=== PATIENT | female | born 1965 | race Two or more races ===

== ENCOUNTER 2024-08-02 15:53 | Inpatient (IN) | payer OTHER ==
[~2024-08-02] VITALS: Ht 168.9 cm; Wt 53.0 kg
--- NOTE | 2024-08-02 16:23 | ED.PDOC ---
HPI Comments 58 year old female presents to the ED with chief complaint of chest pain. Patient reports that she has been experiencing chest pain with associated SOB, headache, and nausea since about 3pm today. Patient relays that she has been experiencing a recent cold lately. Patient denies any vomiting, diarrhea, cough, dizziness, abdominal pain, numbness, or weakness. Chief Complaint: Chest Pain Time Seen by MD: 16:20 Reviewed Notes: Nurses Notes, Medications, Allergies Allergies: Coded Allergies: NO KNOWN ALLERGIES (Unverified , 08/02/24) Information Source: Patient Mode of Arrival: Ambulatory Severity: Moderate Timing: Hours Duration: Since onset Prehospital treatment: None Location: Chest (L) Radiation: No Radiation Quality: Pressure Onset: At Rest Cardiac Risk Factors: HTN PE Risk Factors: None History of: None Past Medical History PAST MEDICAL HISTORY: Asthma, HTN Surgical History: Denies all surgeries PHOTOGRAPHER MOTION PICTURE History: No Pertinent PHOTOGRAPHER MOTION PICTURE History Family History Family History: Reviewed,noncontributory to illness Social History Smoker: Non-Smoker Alcohol: Denies ETOH Use Drugs: Denies Drug Use Lives In: Home Constitutional: denies: chills, diaphoresis, fatigue, fever, malaise, sweats, weakness, others EENTM: denies: blurred vision, double vision, ear bleeding, ear discharge, ear drainage, ear pain, ear ringing, eye pain, eye redness, hearing loss, mouth pain, mouth swelling, nasal discharge, nose bleeding, nose congestion, nose pain, photophobia, tearing, throat pain, throat swelling, voice changes, others Respiratory: reports: shortness of breath; denies: cough, hemoptysis, orthopnea, SOB at rest, SOB with excertion, stridor, wheezing, others Cardiovascular: reports: chest pain; denies: dizzy spells, diaphoresis, Dyspnea on exertion, edema, irregular heart beat, left arm pain, lightheadedness, palpitations, PND, syncope, others Gastrointestinal: reports: nausea; denies: abdomen distended, abdominal pain, blood streaked bowels, constipated, diarrhea, dysphagia, difficulty swallowing, hematemesis, melena, poor appetite, poor fluid intake, rectal bleeding, rectal pain, vomiting, others Genitourinary: denies: abnormal vagina bleeding, burning, dyspareunia, dysuria, flank pain, frequency, hematuria, incontinence, pain, , vagina discharge, urgency, others Neurological: reports: headache; denies: dizziness, fainting, left sided numbness, left sided weakness, numbness, paresthesia, pre-existing deficit, right sided numbness, right sided weakness, seizure, speech problems, tingling, tremors, weakness, others Musculoskeletal: denies: back pain, gout, joint pain, joint swelling, muscle pain, muscle stiffness, neck pain, others Integumetry: denies: bruises, change in color, change in hair/nails, dryness, laceration, lesions, lumps, rash, wounds, others Allergic/Immunocompromised: denies: Difficulty Healing, Frequent Infections, Hives, Itching, others Hematologic/Lymphatic: denies: anemia, blood clots, easy bleeding, easy bruising, swollen glands, others Endocrine: denies: excessive hunger, excessive sweating, excessive thirst, excessive urination, flushing, intolerance to cold, intolerance to heat, unexplained weight gain, unexplained weight loss, others Psychiatric: denies: anxiety, bipolar disorder, depression, hopeless, panic disorder, schizophrenia, sleepless, suicidal, others All Other Systems: Reviewed and Negative Physical Exam General Appearance: No Apparent Distress, Normal HEENT: Normal ENT Inspection, PERRL/EOMI Neck: Full Range of Motion, Non-Tender, Normal, Normal Inspection Respiratory: Chest Non-Tender, Lungs Clear, No Accessory Muscle Use, No Respi ratory Distress, Normal Breath Sounds Cardiovascular: No Edema, No JVD, No Murmur, No Gallop, Normal Peripheral Pulses, Regular Rate/Rhythm Breast Exam: Deferred Gastrointestinal: No Organomegaly, Non Tender, No Pulsatile Mass, Normal Bowel Sounds, Soft Genitalia: Deferred Pelvic: Deferred Rectal: Deferred Extremities: No calf tenderness, Normal capillary refill, Normal inspection, Normal range of motion, Non-tender, No pedal edema Musculoskeletal : Apperance: Normal Neurologic: Alert, rotary adjuster II-XII nml as Tested, No Motor Deficits, Normal Affect, Normal Mood, No Sensory Deficits Cerebellar Function: Normal Reflexes: Normal Skin: Dry, Normal Color, Warm Lymphatic: No Adenopathy EKG EKG : Pulse Rate (adult): 80 Laura: Normal Cardiac Rhythm: NSR Block: None Hypertrophy: None ST: Normal Was a procedure done? Was a procedure done?: No CP Differential Dx Differential Diagnosis: PAC's, PSVT Other Differential Diagnosis GERD, peptic ulcer disease, esophagitis, pancreatitis, biliary colic, cholelithiasis, gastritis, gastroenteritis, ACS, PE, AAA, PTX, Costochondritis, empyema, pericarditis Differential Diagnosis: Angina, Aortic dissection, Chest Wall Pain, Costochondritis, Myocardial Infarction X-Ray, Labs, Meds, VS Vital Signs Date Time Temp Pulse Resp B/P (MAP) Pulse Ox O2 Delivery O2 Flow Rate FiO2 08/02/24 17:23 83 18 100 Room Air* 0 21 08/02/24 17:22 86 20 164/96 (118) 100 08/02/24 17:15 176/102 08/02/24 17:10 97.8 83 22 179/123 (141) 100 97.8 08/02/24 17:07 85 20 176/102 08/02/24 17:00 74 08/02/24 16:23 80 08/02/24 16:11 97.8 79 18 184/99 (127) 100 08/02/24 15:59 80 Lab Test 08/02/24 17:23 08/02/24 17:10 08/02/24 16:03 08/02/24 00:00 Range/Units POC Glucose 92 70-106 mg/dl Troponin I High Sensitivity Pending < 3 L </=34 ng/L Sodium Level Pending Potassium Level Pending Chloride Level Pending Carbon Dioxide Level Pending Anion Gap Pending Blood Urea Nitrogen Pending Creatinine Pending Glomerular Filtration Rate Calc Pending BUN/Creatinine Ratio Pending Serum Glucose Pending Calcium Level Pending Total Bilirubin Pending Aspartate Amino Transferase (AST) Pending Alanine Aminotransferase (ALT) Pending Alkaline Phosphatase Pending Total Protein Pending Albumin Pending Urine Color Light-yellow Yellow Urine Clarity Clear Clear Urine pH 6.5 5.0-9.0 Urine Specific [place] 1.016 1.001-1.035 Urine Protein Negative Negative Urine Ketones Negative Negative Urine Blood Negative Negative /uL Urine Nitrite Negative Negative Urine Bilirubin Negative Negative Urine Urobilinogen Normal Negative mg/dL Urine Leukocyte Esterase 1+ Negative /uL Urine RBC 1 0 - 4 /hpf Urine WBC 3 0 - 5 /hpf Urine Squamous Epithelial Cells Few <5 /hpf Urine Bacteria Few H None Seen /hpf Urine Glucose Normal Normal mg/dL Current Medications Medications (Trade) Dose Ordered Sig/Marina Route Start Time Stop Time Status Last Admin Nitroglycerin (Nitrodur 0.2MG/ Hr) 1 patch ONCE ONCE TD 08/02/24 16:15 08/02/24 16:18 DC 08/02/24 17:15 Morphine Sulfate 4 mg ONCE ONCE IV 08/02/24 16:15 08/02/24 16:18 DC 08/02/24 17:07 Ondansetron HCl (Zofran) 4 mg ONCE ONCE IV 08/02/24 16:15 08/02/24 16:18 DC 08/02/24 17:03 Chest XR: FINDINGS: Lines and Tubes: None Lungs: No focal consolidation. Pleura: No effusion.No pneumothorax. Cardiomediastinal contours: Unremarkable Pulmonary vasculature: Within normal limits. Bones: No acute osseous abnormality. IMPRESSION: 1. No acute cardiopulmonary disease. Images Reviewed?: Images reviewed and evaluated by me Time of 1ST Reevaluation: 17:20 Reevaluation 1ST: Unchanged Patient Education/Counseling: Diagnosis, Treatment Family Education/Counseling: No Family Present Departure 1 Departure Time of Disposition: 17:48 Impression: Primary Impression: Hypertensive emergency Additional Impression: Chest pain Disposition: 09 ADMITTED INPATIENT Admit to: Tele Condition: Guarded Critical Care Note Critical Care Time?: Yes (45 min-critical care time only) Critical care comment: CRITICAL CARE TIME: Treatments/Evaluations: Close monitoring and treatment of unstable vital signs, cardiorespiratory, and neurologic status, while maintaining tight balance of fluid, respiratory, and cardiac interventions. This time includes discussing the case with the patient and the patients family. This time does not include all procedures stated elsewhere in this record. This time also includes reviewing ol d records, labs and radiological studies. This time includes examining and re- examining the patient. Additionally, this time also includes arranging care with admitting and consulting physicians. Stability Stability form required: No Heart Score Heart Score: Heart Score Response (Comments) Value History Moderate Suspicious 1 EKG Normal 0 Age 45-64 1 Risk Factors 1 or 2 risk factors 1 Troponin N/A 0 Total 3 I personally scribed for ISAAC NUÑEZ MD ([email or web address]) on 08/02/24 at 16:23. Electronically submitted by Kevin Sauceda ([email or web address]). I personally scribed for ISAAC NUÑEZ MD ([email or web address]) on 08/02/24 at 16:41. Electronically submitted by Kevin Sauceda ([email or web address]). I personally scribed for ISAAC NUÑEZ MD ([email or web address]) on 08/02/24 at 17:25. Electronically submitted by Kevin Sauceda ([email or web address]). ISAAC NUÑEZ MD Aug 02, 2024 16:23
--- NOTE | 2024-08-02 16:33 | DVH ---
CHEST RADIOGRAPH Indication: cp Technique: Single frontal view of the chest was obtained Comparison: None FINDINGS: Lines and Tubes: None Lungs: No focal consolidation. Pleura: No effusion.No pneumothorax. Cardiomediastinal contours: Unremarkable Pulmonary vasculature: Within normal limits. Bones: No acute osseous abnormality. IMPRESSION: 1. No acute cardiopulmonary disease. HS:Y
[2024-08-02 16:42] LABS: Urine Bacteria FEW /hpf (None Seen); Urine Blood Negative /uL (Negative); Urine Clarity Clear (Clear); Urine Color Light-Yellow (Yellow); Urine Protein, UAD Negative (Negative); Urine Specific Gravity 1.016 (1.001-1.035); Urine Squamous Epithelial Cell FEW /hpf (<5); Urine Urobilinogen Normal (Negative); Urine WBC 3 /hpf (0 - 5); Urine pH 6.5 (5.0-9.0)
[2024-08-02] MEDS: ONDANSETRON HCL 4 MG/2 ML VIAL IV ONE (17:03)
[2024-08-02] MEDS: MORPHINE SULFATE 4 MG/ML SYR/VIAL IV ONE (17:07)
[2024-08-02] MEDS: NITROGLYCERIN 0.2MG/HR TOPICAL PATCH TD ONE (17:15)
[2024-08-02 17:23] VITALS: PULSE 83; RESP 18; O2SAT 100
[2024-08-02 17:57] LABS: Alanine Aminotransferase 22 U/L (7-40); Albumin 4.4 g/dL (3.2-4.8); Alkaline Phosphatase 64 U/L (46-116); Anion Gap 8 (5-15); Aspartate Aminotransferase 18 U/L (13-40); BUN/Creatinine Ratio 13.9 (10.0-20.0); Blood Urea Nitrogen 11 mg/dL (9-23); Calcium 10.1 mg/dL (8.7-10.4); Carbon Dioxide 25 mmol/L (20-31); Glucose 95 mg/dL (74-106); Potassium 3.6 mmol/L (3.5-5.1); Sodium 141 mmol/L (136-145)
[2024-08-02 17:58] LABS: Bilirubin, Total 0.3 mg/dL (0.2-1.0); Total Protein 7.4 g/dL (5.7-8.2)
[2024-08-02 18:08] LABS: Chloride 108 mmol/L (98-107)
[2024-08-02 18:20] LABS: Basophils # (auto) 0 10 ^3/uL (0-0.2); Basophils % (auto) 0.9 % (0.0-2.0); Eosinophils # (auto) 0.1 10 ^3/uL (0-0.8); Eosinophils % (auto) 2.7 % (0.0-7.0); Hematocrit 37.5 % (36.0-46.0); Lymphocytes # (auto) 2.1 10 ^3/uL (0.4-5.4); Lymphocytes % (auto) 44.5 % (10.0-50.0); Mean Corpuscular Hemoglobin 31.4 pg (28.0-32.0); Mean Corpuscular Hgb Conc. 34.5 g/dL (32.0-36.0); Mean Corpuscular Volume 90.9 fL (80.0-100.0); Monocytes # (auto) 0.5 10 ^3/uL (0-1.3); Monocytes % (auto) 10.3 % (0.0-12.0); Neutrophils % (auto) 41.6 % (37.0-80.0); Nucleated Red Blood Cells % 0.4 %; Platelet Count (auto) 387 10^3/uL (140-450); Red Blood Cells 4.13 10^6/uL (4.0-5.20); Red Cell Distribution Width 12.9 % (11.8-14.3); White Blood Cell 4.7 10^3/uL (4.4-10.8)
--- NOTE | 2024-08-02 18:50 | ECG ---
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
--- NOTE | 2024-08-02 19:58 | ECG ---
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
[2024-08-02 22:45] VITALS: O2SAT 100
[2024-08-03] VITALS (11 sets, daily range): BP systolic 121–155; BP diastolic 73–107; PULSE 49–81; RESP 16–20; TEMP 97.8–98.8; O2SAT 96–98
--- NOTE | 2024-08-03 01:35 | DVHHPRES ---
History of Present Illness Resident Creating Document: REYNALDO CERRATO RESIDENT History of Present Illness Patient is 58-year-old female with past medical history of hypertension and hyperlipidemia who came to the hospital with a chief complaint of acute onset of chest pain and concurrent shortness of breath. As per patient he usually have palpitation and has been recently diagnosed with hypertension and hyperlipidemia how she is not taking any medication, today around 3:00 p.m. she started having chest pain, substernal, nonradiating, present at rest, associated with palpitation, mild shortness of breath. At the time of evaluation patient is chest pain and shortness of breath resolved, initially patient was hypertensive systolic ranging 180 which normalized to 122 130. Patient denied any other complaints including fever, chills, sputum production, motor weakness, dizziness, sensory deficits, dysuria, any other symptoms. Past Medical History Hypertension, hyperlipidemia Past Surgical History: None Family History: None Smoke: No ALCOHOL: none Drugs: None Lives: with Family Review of Systems Review of Systems Eyes: No Pain, No Vision change, No Conjunctivae inflammation, No Eyelid inflammation, No Other, No Redness ENT: No Ear pain, No Ear discharge, No Nose pain, No Nose discharge, No Nose congestion, No Mouth pain, No Mouth swelling, No Throat pain, No Throat swelling, No Other Cardiovascular: No Chest Pain, No Palpitations, No Orthopnea, No Paroxysmal Noc. Dyspnea, No Edema, No Lt Headedness, No Other Respiratory: No Cough, No Dry, No Shortness of breath, No SOB with excertion, No Wheezing, No Hemoptysis, No Pleuritic Pain, No Sputum, No Other Gastrointestinal: No Nausea, No Vomiting, No Abdominal Pain, No Diarrhea, No Constipation, No Melena, No Hematochezia, No Other Genitourinary: No Dysuria, No Frequency, No Incontinence, No Hematuria, No Retention, No Other Musculoskeletal: No other, No neck pain, No shoulder pain, No arm pain, No back pain, No hand pain, No leg pain, No foot pain Skin: No Rash, No Lesions, No Jaundice, No Bruising, No Other Allergies: Coded Allergies: Iodine (Verified Allergy, Severe, 08/03/24) "bad reaction" per patient Exam Vital Signs Vital Signs Date Time Temp Pulse Resp B/P (MAP) Pulse Ox O2 Delivery O2 Flow Rate FiO2 08/02/24 21:41 98.2 85 18 152/84 (106) 96 98.2 08/02/24 17:23 Room Air* 0 21 Exam General Appearance: Cooperative. Well developed. Well nourished. NAD Head Exam: Normal inspection Neck Exam: Normal inspection. Non-tender. Normal alignment Pulmonary/Respiratory: Chest non-tender. Clear bilateral breath sounds Cardiovascular/Chest: Regular rate and rhythm. No murmurs. No JVD. Peripheral Pulses: 2+ Radial (R). 2+ Radial (L). 2+ Pedal (R). 2+ Pedal (L) Abdominal Exam: Normal bowel sounds. Soft. Nontender. No hepatospenomegaly. No masses Ankle Exam: Negative ankle edema Lower extremities: Negative lower extremity edema Neuro/Mental Status: A&O x4. Coherent Thoughts/Psych: Normal thought pattern. Appropriate mood and affect. Good judgement and insight Appearance: In no acute distress Skin Exam: Normal inspection. Normal color. Warm. Dry Labs/Xrays Labs Test 08/02/24 19:19 08/02/24 17:23 08/02/24 17:03 08/02/24 16:03 Range/Units Troponin I High Sensitivity 4 </=34 ng/L POC Glucose 92 70-106 mg/dl White Blood Count 4.7 4.4-10.8 10^3/uL Red Blood Count 4.13 4.0-5.20 10^6/uL Hemoglobin 13.0 12.2-16.2 g/dL Hematocrit 37.5 36.0-46.0 % Mean Corpuscular Volume 90.9 80.0-100.0 fL Mean Corpuscular Hemoglobin 31.4 28.0-32.0 pg Mean Corpuscular Hemoglobin Concent 34.5 32.0-36.0 g/dL Red Cell Distribution Width 12.9 11.8-14.3 % Platelet Count 387 140-450 10^3/uL Mean Platelet Volume 8.2 6.9-10.8 fL Neutrophils (%) (Auto) 41.6 37.0-80.0 % Lymphocytes (%) (Auto) 44.5 10.0-50.0 % Monocytes (%) (Auto) 10.3 0.0-12.0 % Eosinophils (%) (Auto) 2.7 0.0-7.0 % Basophils (%) (Auto) 0.9 0.0-2.0 % Neutrophils # (Auto) 2.0 1.6-8.6 10 ^3/uL Lymphocytes # (Auto) 2.1 0.4-5.4 10 ^3/uL Monocytes # (Auto) 0.5 0-1.3 10 ^3/uL Eosinophils # (Auto) 0.1 0-0.8 10 ^3/uL Basophils # (Auto) 0 0-0.2 10 ^3/uL Nucleated Red Blood Cells 0.4 % Sodium Level 141 136-145 mmol/L Potassium Level 3.6 3.5-5.1 mmol/L Chloride Level 108 H 98-107 mmol/L Carbon Dioxide Level 25 20-31 mmol/L Anion Gap 8 5-15 Blood Urea Nitrogen 11 9-23 mg/dL Creatinine 0.79 0.550-1.02 mg/dL Glomerular Filtration Rate Calc 86 >90 mL/min BUN/Creatinine Ratio 13.9 10.0-20.0 Serum Glucose 95 74-106 mg/dL Calcium Level 10.1 8.7-10.4 mg/dL Total Bilirubin 0.3 0.2-1.0 mg/dL Aspartate Amino Transferase (AST) 18 13-40 U/L Alanine Aminotransferase (ALT) 22 7-40 U/L Alkaline Phosphatase 64 46-116 U/L Total Protein 7.4 5.7-8.2 g/dL Albumin 4.4 3.2-4.8 g/dL Test 08/02/24 00:00 Range/Units Urine Color Light-yellow Yellow Urine Clarity Clear Clear Urine pH 6.5 5.0-9.0 Urine Specific [place] 1.016 1.001-1.035 Urine Protein Negative Negative Urine Ketones Negative Negative Urine Blood Negative Negative /uL Urine Nitrite Negative Negative Urine Bilirubin Negative Negative Urine Urobilinogen Normal Negative mg/dL Urine Leukocyte Esterase 1+ Negative /uL Urine RBC 1 0 - 4 /hpf Urine WBC 3 0 - 5 /hpf Urine Squamous Epithelial Cells Few <5 /hpf Urine Bacteria Few H None Seen /hpf Urine Glucose Normal Normal mg/dL Assessment/Plan Assessment/Plan Hypertensive urgency Chest pain ? Stable angina Palpitation, currently sinus rhythm Moderate protein malnutrition Hyperlipidemia Plan/recommendation -initiate antihypertensive medication, losartan 12.5 mg p.o. daily. At the time of evaluation patient blood pressure normalized and chest pain also resolved. -cardiology consultation for evaluation of coronary artery and complaining of chronic palpitation, likely stable angina -hydralazine 10 mg IV q.6 p.r.n. -echocardiogram to evaluate structural abnormality of heart -cardiac diet -PUD prophylaxis with famotidine -DVT prophylaxis: Patient is ambulatory Goals of care discussed get in 22 minutes, full code. Plan discussed with Dr. Lugo Plan discussed with: Patient, Other (RN) My Orders Orders - REYNALDO CERRATO RESIDENT Procedure Category Date Status Time Admit ADMIT 08/03/24 Verified 01:34 Nitroglycerin [facility] 08/03/24 Verified Sublingual (Ntrostat 01:45 Morphine Sulfate [facility] 08/03/24 Verified Injection 01:45 Oxygen By Nasal RT 08/03/24 Verified Cannula 01:34 Stat Ekg For Chest [facility] 08/03/24 Verified Pain 01:34 Notify Md Of Changes [facility] 08/03/24 Verified From Base 01:34 Access Representative For [facility] 08/03/24 Verified 24 Hours 01:34 Emergency Dysrhythmia [facility] 08/03/24 Verified Protocol 01:34 Rhythm Strips Once [facility] 08/03/24 Verified Every Shift 01:34 Date of Service: Aug 03, 2024 Billing Provider: MORIAH LUGO MD Common Visit Codes: [id number] INP/OBS CARE (HIGH) REYNALDO CERRATO RESIDENT Aug 03, 2024 01:35 MORIAH LUGO MD Aug 05, 2024 12:00
[2024-08-03] MEDS ORDERED: MORPHINE SULFATE INJ 2 MG/ml SYRG IV PRN (01:45)
[2024-08-03] MEDS ORDERED: NITROGLYCERIN 0.4 MG SL TAB SL PRN (01:45)
[2024-08-03] MEDS: LOSARTAN POTASSIUM 25 MG TAB PO ONE (02:09)
[2024-08-03] MEDS: ACETAMINOPHEN 500 MG TAB or CAP PO PRN (03:22)
[2024-08-03] MEDS ORDERED: hydrALAZINE HCL 20 MG/ML VL IV ONE (04:00)
[2024-08-03] MEDS: FAMOTIDINE 20 MG TAB PO SCH (09:05)
[2024-08-03] MEDS: LOSARTAN POTASSIUM 25 MG TAB PO SCH (09:05)
--- NOTE | 2024-08-03 11:05 | DVHINCON2 ---
Date Seen: Aug 03, 2024 Referring Physician Sylwia Reason for Consultation Hypertensive urgency, unstable angina History of Present Illness 58-year-old female with PMH for HTN not on medication, HLD, and cannabis use presents to the hospital with acute onset of chest pain, palpitations, and shortness of breath. Patient states she was at work when she had sudden onset of chest pressure, retrosternal, nonradiating, pressure in nature, not associated with palpitations, shortness or breath, and headaches. Patient states she was told to go the hospital by her boss. Of note patient recently had tele med visit due to not feeling right, and headaches couple of weeks back for which blood pressure was noted to be elevated but was not started on any medication. Upon evaluation in the ER patient noted to have blood pressure of 184/99. Troponins negative x3. CXR negative. EKG reviewed and shows normal sinus rhythm at 80 beats per minute, no acute ST and T-wave abnormalities noted. Past Medical History HTN HLD Marijuana use Past Surgical History Denies previous cardiac surgeries Family History: Alzheimer's disease GRANDMOTHER FH: heart attack G8 MOTHER FH: kidney disease G8 MOTHER Social History Denies alcohol or tobacco use, does use intermittent cannabinoids Allergies: Coded Allergies: Iodine (Verified Allergy, Severe, 08/03/24) "bad reaction" per patient Home Meds No Active Prescriptions or Reported Meds Current Medications Current Medications Medications (Trade) Dose Ordered Sig/Marina Route PRN Reason Start Time Stop Time Status Last Admin Nitroglycerin (Ntrostat Sublingual) 0.4 mg Q5MINP PRN SL FOR CHEST PAIN 08/03/24 01:45 Morphine Sulfate 2 mg Q30M PRN IV FOR CHEST PAIN 08/03/24 01:45 Acetaminophen (Tylenol Tablet Or Capsule) 500 mg Q6HPRN PRN PO MILD PAIN (1-3 PAIN SCALE) 08/03/24 01:45 08/03/24 10:18 Losartan Potassium (Cozaar Tablet) 12.5 mg DAILY PO 08/04/24 10:00 08/03/24 08:02 DC Hydralazine HCl (Apresoline Injection) 10 mg Q6HP PRN IV SBP>150 08/03/24 06:45 Famotidine (Pepcid Tablet) 20 mg Q12HR PO 08/03/24 10:00 08/03/24 09:05 Losartan Potassium (Cozaar Tablet) 25 mg DAILY PO 08/03/24 10:00 08/03/24 09:05 Review of Systems Constitutional: No: Fever, Chills, Sweats, Weakness, Malaise, Other Eyes: No: Pain, Vision change, Conjunctivae inflammation, Eyelid inflammation, Other, Redness ENT: No: Ear pain, Ear discharge, Nose pain, Nose discharge, Nose congestion, Mouth pain, Mouth swelling, Throat pain, Throat swelling, Other Respiratory: No: Cough, Dry, Shortness of breath, SOB with exertion, Wheezing, Hemoptysis, Pleuritic Pain, Sputum, Wheezing, Other Cardiovascular: ; No: Chest Pain Palpitations, Orthopnea, Paroxysmal Noc. Dyspnea, Edema, Lt Headedness, Other Gastrointestinal: No: Nausea, Vomiting, Abdominal Pain, Diarrhea, Constipation, Melena, Hematochezia, Other Genitourinary: No Dysuria, No Frequency, No Incontinence, No Hematuria, No Retention, No Other Musculoskeletal: neck pain; No: other, shoulder pain, arm pain, back pain, hand pain, leg pain, foot pain Skin: No: Rash, Lesions, Jaundice, Bruising, Other Neurological: Other (Dizziness, headache.); No: Weakness, Numbness, Incoordination, Change in speech, Confusion, Seizures Vital Signs Vital Signs Date Time Temp Pulse Resp B/P (MAP) Pulse Ox O2 Delivery O2 Flow Rate FiO2 08/03/24 09:05 121/73 08/03/24 09:00 98.6 54 16 98 98.6 08/03/24 02:48 Room Air* 0 21 Physical Exam General appearance: Patient is well-developed, well-nourished, in no acute distress. HEENT: Exam shows: Normocephalic, atraumatic, PERRLA, EOMI Neck: Supple, no bruits Chest: Equal chest excursion bilaterally. Breath sounds normal-no rales or wheezes. Heart: Rhythm: Regular rate; no murmur or gallop Abdomen: Exam shows: Soft, nontender, nondistended Musculoskeletal: No clubbing, no cyanosis, no lower extremity edema Dermatology: Skin warm, moist. Neurological: Exam shows: Alert and oriented x4, normal speech Available prior records, labs, EKG, rhythm strips reviewed and interpreted Labs/Diagnostic Data Labs Test 08/02/24 19:19 08/02/24 17:23 08/02/24 17:03 08/02/24 16:03 Range/Units Troponin I High Sensitivity 4 </=34 ng/L POC Glucose 92 70-106 mg/dl White Blood Count 4.7 4.4-10.8 10^3/uL Red Blood Count 4.13 4.0-5.20 10^6/uL Hemoglobin 13.0 12.2-16.2 g/dL Hematocrit 37.5 36.0-46.0 % Mean Corpuscular Volume 90.9 80.0-100.0 fL Mean Corpuscular Hemoglobin 31.4 28.0-32.0 pg Mean Corpuscular Hemoglobin Concent 34.5 32.0-36.0 g/dL Red Cell Distribution Width 12.9 11.8-14.3 % Platelet Count 387 140-450 10^3/uL Mean Platelet Volume 8.2 6.9-10.8 fL Neutrophils (%) (Auto) 41.6 37.0-80.0 % Lymphocytes (%) (Auto) 44.5 10.0-50.0 % Monocytes (%) (Auto) 10.3 0.0-12.0 % Eosinophils (%) (Auto) 2.7 0.0-7.0 % Basophils (%) (Auto) 0.9 0.0-2.0 % Neutrophils # (Auto) 2.0 1.6-8.6 10 ^3/uL Lymphocytes # (Auto) 2.1 0.4-5.4 10 ^3/uL Monocytes # (Auto) 0.5 0-1.3 10 ^3/uL Eosinophils # (Auto) 0.1 0-0.8 10 ^3/uL Basophils # (Auto) 0 0-0.2 10 ^3/uL Nucleated Red Blood Cells 0.4 % Sodium Level 141 136-145 mmol/L Potassium Level 3.6 3.5-5.1 mmol/L Chloride Level 108 H 98-107 mmol/L Carbon Dioxide Level 25 20-31 mmol/L Anion Gap 8 5-15 Blood Urea Nitrogen 11 9-23 mg/dL Creatinine 0.79 0.550-1.02 mg/dL Glomerular Filtration Rate Calc 86 >90 mL/min BUN/Creatinine Ratio 13.9 10.0-20.0 Serum Glucose 95 74-106 mg/dL Calcium Level 10.1 8.7-10.4 mg/dL Total Bilirubin 0.3 0.2-1.0 mg/dL Aspartate Amino Transferase (AST) 18 13-40 U/L Alanine Aminotransferase (ALT) 22 7-40 U/L Alkaline Phosphatase 64 46-116 U/L Total Protein 7.4 5.7-8.2 g/dL Albumin 4.4 3.2-4.8 g/dL Test 08/02/24 00:00 Range/Units Urine Color Light-yellow Yellow Urine Clarity Clear Clear Urine pH 6.5 5.0-9.0 Urine Specific [place] 1.016 1.001-1.035 Urine Protein Negative Negative Urine Ketones Negative Negative Urine Blood Negative Negative /uL Urine Nitrite Negative Negative Urine Bilirubin Negative Negative Urine Urobilinogen Normal Negative mg/dL Urine Leukocyte Esterase 1+ Negative /uL Urine RBC 1 0 - 4 /hpf Urine WBC 3 0 - 5 /hpf Urine Squamous Epithelial Cells Few <5 /hpf Urine Bacteria Few H None Seen /hpf Urine Glucose Normal Normal mg/dL Assessment Chest pain Hypertensive urgency HX HLD Palpitations Shortness of breath Plan/Recommendation * Troponins negative x3. EKG negative for acute ischemic changes. ACS ruled out. Continue on aspirin. Follow up echo. * Follow up lipid panel. * Continue on losartan 25 mg p.o. daily. Continue trending. * Continue tele monitoring for arrhythmias. Outpatient event monitoring for palpitations. * CXR negative, breathing stable on room air Case Discussed with Dr Luciano. Follow up echo. Continue telemetry monitoring. Plan will be discussed to determine ischemic workup inpatient versus outpatient. Critical care, time spent: 40 minutes This medical document was created using an electronic medical record system with voice recognition software and computerized dictation system. Although this document has been carefully reviewed, there might still be some phonetic and typographical errors. Occasional wrong-word or ``sound-alike substitutions may have occurred due to the inherent limitations of voice recognition software. These areas are purely typographical due to imperfections of the software programs and do not reflect any compromise in the patient's medical care. Please read the chart carefully and recognize, using context, where these substitutions have occurred. Thank you for allowing me to participate in the management of this patient. The treatment plan was discussed with and agreed upon by patient/family including requesting consultants and ordering of imaging/procedures. Plan discussed with: Patient NYHA Physical activity limitations: NA Date of Service: Aug 03, 2024 Billing Provider: POPPY GONZALEZ Cardiology Common Codes: [id number], [id number] CARE 30-74 MIN POPPY GONZALEZ Aug 03, 2024 11:05
[2024-08-03] MEDS ORDERED: ASCO500T11 PO (11:13)
[2024-08-03] MEDS ORDERED: MAGN400T40 PO (11:14)
[2024-08-03] MEDS ORDERED: CHOL20007 PO (11:14)
[2024-08-03] MEDS: ASPirin 81 mg TAB PO ONE (11:41)
--- NOTE | 2024-08-03 11:46 | DVHPN2 ---
Reviewed: Care Plan, H&P, Labs, Medications, Previous Orders, Radiology Changes from previous H/P or p: No Changes Objective Vitals Vital Signs Date Time Temp Pulse Resp B/P (MAP) Pulse Ox O2 Delivery O2 Flow Rate FiO2 08/03/24 09:05 121/73 08/03/24 09:00 98.6 54 16 98 98.6 08/03/24 08:30 Room Air* 0 21 Intake/Output Intake and Output 08/03/24 07:00 Intake Total 700 ml Output Total 700 ml Balance 0 ml Intake Oral 700 ml Output Urine Total 700 ml Medications Current Medications Medications Dose Ordered Sig/Marina Route Start Time Stop Time Status Last Admin Dose Admin Nitroglycerin 0.4 mg Q5MINP PRN SL 08/03/24 01:45 Morphine Sulfate 2 mg Q30M PRN IV 08/03/24 01:45 Acetaminophen 500 mg Q6HPRN PRN PO 08/03/24 01:45 08/03/24 10:18 500 MG Hydralazine HCl 10 mg Q6HP PRN IV 08/03/24 06:45 Famotidine 20 mg Q12HR PO 08/03/24 10:00 08/03/24 09:05 20 MG Losartan Potassium 25 mg DAILY PO 08/03/24 10:00 08/03/24 09:05 25 MG Aspirin 81 mg DAILY PO 08/04/24 10:00 Laboratory Results Laboratory Tests 08/02/24 16:03 08/02/24 17:03 Chemistry Test 08/02/24 16:03 Albumin 4.4 g/dL (3.2-4.8) Calcium Level 10.1 mg/dL (8.7-10.4) Total Protein 7.4 g/dL (5.7-8.2) LFT Test 08/02/24 16:03 Alanine Aminotransferase (ALT) 22 U/L (7-40) Alkaline Phosphatase 64 U/L (46-116) Aspartate Amino Transferase (AST) 18 U/L (13-40) Total Bilirubin 0.3 mg/dL (0.2-1.0) Urinalysis Test 08/02/24 00:00 Urine Color Light-yellow (Yellow) Urine Clarity Clear (Clear) Urine pH 6.5 (5.0-9.0) Urine Specific [place] 1.016 (1.001-1.035) Urine Protein Negative (Negative) Urine Ketones Negative (Negative) Urine Blood Negative /uL (Negative) Urine Nitrite Negative (Negative) Urine Bilirubin Negative (Negative) Urine Urobilinogen Normal mg/dL (Negative) Urine Leukocyte Esterase 1+ /uL (Negative) Urine RBC 1 /hpf (0 - 4) Urine WBC 3 /hpf (0 - 5) Urine Squamous Epithelial Cells Few /hpf (<5) Urine Bacteria Few /hpf (None Seen) H Urine Glucose Normal mg/dL (Normal) Labs and/or images reviewed: Labs reviewed by me, Image(s) reviewed by me Assessment/Plan Assessment/Plan Acute chest pain coronary artery disease ruled out Troponin negative x3 cardiology consult by Dr. Liz Luciano appreciated Hypertensive emergency losartan Hypercholesterolemia Palpitations Shortness of breath Marijuana Abuse: Counseling Will check urine drug screen Echocardiogram pending Plan discussed with: Patient My Orders Orders - YAHAIRA CAICEDO MD Procedure Category Date Status Time Drug Screen LAB 08/03/24 Verified 11:38 Date of Service: Aug 03, 2024 Billing Provider: YAHAIRA CAICEDO MD Common Visit Codes: [id number] INP/OBS CARE(HIGH) YAHAIRA CAICEDO MD Aug 03, 2024 11:46
[2024-08-03] MEDS: hydrALAZINE HCL 20 MG/ML VL IV PRN (13:29)
[2024-08-03 13:39] LABS: Triglycerides 77 mg/dL (< 150)
[2024-08-03 13:41] LABS: Cholesterol 171 mg/dL (< 200); HDL Cholesterol 57 mg/dL (40-59)
[2024-08-03 13:47] LABS: LDL Cholesterol 106 mg/dL (< 100)
--- NOTE | 2024-08-03 21:40 | DVHINCON2 ---
Date Seen: Aug 03, 2024 Referring Physician Sylwia Reason for Consultation Hypertensive urgency, unstable angina History of Present Illness This is a 58-year-old female with a PMH of HTN not on medication, HLD, and cannabis use presents to the ED with c/o acute onset of chest pain, palpitations, and shortness of breath. Patient states she was at work when she had sudden onset of chest pressure, retrosternal, nonradiating, pressure in nature, not associated with palpitations, shortness or breath, and headaches. Patient states she was told to go the hospital by her boss. Of note patient recently had tele med visit due to not feeling right, and headaches couple of weeks back for which blood pressure was noted to be elevated but was not started on any medication. Upon evaluation in the ED patient noted to have blood pressure of 184/99. Troponins negative x3. CXR negative. EKG reviewed and shows normal sinus rhythm at 80 beats per minute, no acute ST and T-wave abnormalities noted. Patient was admitted to the hospital. I am asked to consult on this pat ient Family History: Alzheimer's disease GRANDMOTHER FH: heart attack G8 MOTHER FH: kidney disease G8 MOTHER Allergies: Coded Allergies: Iodine (Verified Allergy, Severe, 08/03/24) "bad reaction" per patient Home Meds Reported Medications Cholecalciferol (VITAMIN D3) 2,000 Unit Tab, 1 TAB PO DAILY, #30 TAB 5 Refills 08/03/24 Magnesium Oxide (MAGNESIUM OXIDE) 400 Mg Tab, 1 TAB PO DAILY, #30 TAB 5 Refills 08/03/24 Ascorbic Acid (VITAMIN C TABLET) 500 Mg Tb, 1 TAB PO DAILY, #30 TAB 3 Refills 08/03/24 Current Medications Current Medications Medications (Trade) Dose Ordered Sig/Marina Route PRN Reason Start Time Stop Time Status Last Admin Nitroglycerin (Ntrostat Sublingual) 0.4 mg Q5MINP PRN SL FOR CHEST PAIN 08/03/24 01:45 Morphine Sulfate 2 mg Q30M PRN IV FOR CHEST PAIN 08/03/24 01:45 Acetaminophen (Tylenol Tablet Or Capsule) 500 mg Q6HPRN PRN PO MILD PAIN (1-3 PAIN SCALE) 08/03/24 01:45 08/03/24 17:15 Losartan Potassium (Cozaar Tablet) 12.5 mg DAILY PO 08/04/24 10:00 08/03/24 08:02 DC Hydralazine HCl (Apresoline Injection) 10 mg Q6HP PRN IV SBP>150 08/03/24 06:45 08/03/24 13:29 Famotidine (Pepcid Tablet) 20 mg Q12HR PO 08/03/24 10:00 08/03/24 09:05 Losartan Potassium (Cozaar Tablet) 25 mg DAILY PO 08/03/24 10:00 08/03/24 09:05 Aspirin 81 mg DAILY PO 08/04/24 10:00 Review of Systems Constitutional: No: Fever, Chills, Sweats, Weakness, Malaise, Other Eyes: No: Pain, Vision change, Conjunctivae inflammation, Eyelid inflammation, Other, Redness ENT: No: Ear pain, Ear discharge, Nose pain, Nose discharge, Nose congestion, Mouth pain, Mouth swelling, Throat pain, Throat swelling, Other Respiratory: No: Cough, Dry, Shortness of breath, SOB with exertion, Wheezing, Hemoptysis, Pleuritic Pain, Sputum, Wheezing, Other Cardiovascular: ; No: Chest Pain Palpitations, Orthopnea, Paroxysmal Noc. Dyspnea, Edema, Lt Headedness, Other Gastrointestinal: No: Nausea, Vomiting, Abdominal Pain, Diarrhea, Constipation, Melena, Hematochezia, Other Genitourinary: No Dysuria, No Frequency, No Incontinence, No Hematuria, No Retention, No Other Musculoskeletal: neck pain; No: other, shoulder pain, arm pain, back pain, hand pain, leg pain, foot pain Skin: No: Rash, Lesions, Jaundice, Bruising, Other Neurological: Other (Dizziness, headache.); No: Weakness, Numbness, Incoordination, Change in speech, Confusion, Seizures Vital Signs Vital Signs Date Time Temp Pulse Resp B/P (MAP) Pulse Ox O2 Delivery O2 Flow Rate FiO2 08/03/24 17:00 98.1 69 18 146/87 (106) 97 98.1 08/03/24 08:30 Room Air* 0 21 Physical Exam GENERAL: Awake, alert, oriented. LUNGS: Clear. CARDIOVASCULAR: Heart sounds are good. ABDOMEN: Soft. Labs/Diagnostic Data Labs Test 08/03/24 12:21 08/02/24 19:19 08/02/24 17:23 08/02/24 17:03 Range/Units Triglycerides Level 77 < 150 mg/dL Cholesterol Level 171 < 200 mg/dL LDL Cholesterol 106 H < 100 mg/dL HDL Cholesterol 57 40-59 mg/dL Troponin I High Sensitivity 4 </=34 ng/L POC Glucose 92 70-106 mg/dl White Blood Count 4.7 4.4-10.8 10^3/uL Red Blood Count 4.13 4.0-5.20 10^6/uL Hemoglobin 13.0 12.2-16.2 g/dL Hematocrit 37.5 36.0-46.0 % Mean Corpuscular Volume 90.9 80.0-100.0 fL Mean Corpuscular Hemoglobin 31.4 28.0-32.0 pg Mean Corpuscular Hemoglobin Concent 34.5 32.0-36.0 g/dL Red Cell Distribution Width 12.9 11.8-14.3 % Platelet Count 387 140-450 10^3/uL Mean Platelet Volume 8.2 6.9-10.8 fL Neutrophils (%) (Auto) 41.6 37.0-80.0 % Lymphocytes (%) (Auto) 44.5 10.0-50.0 % Monocytes (%) (Auto) 10.3 0.0-12.0 % Eosinophils (%) (Auto) 2.7 0.0-7.0 % Basophils (%) (Auto) 0.9 0.0-2.0 % Neutrophils # (Auto) 2.0 1.6-8.6 10 ^3/uL Lymphocytes # (Auto) 2.1 0.4-5.4 10 ^3/uL Monocytes # (Auto) 0.5 0-1.3 10 ^3/uL Eosinophils # (Auto) 0.1 0-0.8 10 ^3/uL Basophils # (Auto) 0 0-0.2 10 ^3/uL Nucleated Red Blood Cells 0.4 % Test 08/02/24 16:03 08/02/24 00:00 Range/Units Sodium Level 141 136-145 mmol/L Potassium Level 3.6 3.5-5.1 mmol/L Chloride Level 108 H 98-107 mmol/L Carbon Dioxide Level 25 20-31 mmol/L Anion Gap 8 5-15 Blood Urea Nitrogen 11 9-23 mg/dL Creatinine 0.79 0.550-1.02 mg/dL Glomerular Filtration Rate Calc 86 >90 mL/min BUN/Creatinine Ratio 13.9 10.0-20.0 Serum Glucose 95 74-106 mg/dL Calcium Level 10.1 8.7-10.4 mg/dL Total Bilirubin 0.3 0.2-1.0 mg/dL Aspartate Amino Transferase (AST) 18 13-40 U/L Alanine Aminotransferase (ALT) 22 7-40 U/L Alkaline Phosphatase 64 46-116 U/L Total Protein 7.4 5.7-8.2 g/dL Albumin 4.4 3.2-4.8 g/dL Urine Color Light-yellow Yellow Urine Clarity Clear Clear Urine pH 6.5 5.0-9.0 Urine Specific [place] 1.016 1.001-1.035 Urine Protein Negative Negative Urine Ketones Negative Negative Urine Blood Negative Negative /uL Urine Nitrite Negative Negative Urine Bilirubin Negative Negative Urine Urobilinogen Normal Negative mg/dL Urine Leukocyte Esterase 1+ Negative /uL Urine RBC 1 0 - 4 /hpf Urine WBC 3 0 - 5 /hpf Urine Squamous Epithelial Cells Few <5 /hpf Urine Bacteria Few H None Seen /hpf Urine Glucose Normal Normal mg/dL Assessment Chest pain. Hypertensive urgency. History of HLD. Palpitations. Shortness of breath. Plan/Recommendation I agree with your ongoing assessment and care of plan. Patient has been seen by Darian Bundy NP on my behalf, him and I discussed the plan with the patient. Troponins negative x3. EKG negative for acute ischemic changes. ACS ruled out. Continue on aspirin. Follow up echo. Follow up lipid panel. Continue on losartan 25 mg p.o. daily. Continue tele monitoring for arrhythmias. Outpatient event monitoring for palpitations. Additional plan as per the hospital course. Plan discussed with: Patient NYHA Physical activity limitations: NA Date of Service: Aug 03, 2024 Billing Provider: LISA DRAKE MD Cardiology Common Codes: [id number] INP/OBS CARE (High), [id number] CARE 30-74 MIN LISA DRAKE MD Aug 03, 2024 19:17
--- NOTE | 2024-08-03 22:02 | DVHSR ---
APPROVED REPORT EXAM: Two-dimensional and M-mode echocardiogram with Doppler and color Doppler. Blood Pressure: 137/85 mmHg INDICATION Palpitations RISK FACTORS Height: 5'7", Weight: 114 DIMENSIONS LVDd4.8 (3.8-5.7cm)LA (2D)3.6 (1.9-4.0cm)Aortic Root3.2 (2.0-3.7cm) LVDs3.1 (2.5-4.0cm)LA (MM) (1.9-4.0cm)Aortic Cusp Exc1.6 (1.5-2.0cm) EF (%) 60.0 (55-70%)Rt. Atrium3.7 (1.9-4.0cm)Asc. Aorta cm IVSd0.8 (0.7-1.1cm)RV (D)3.2 (1.8-2.4cm) PWd1.0 (0.7-1.1cm) Mitral Valve MitralMitral Stenosis E wave0.84m/sMV Mean GR.mmHg A wave0.64m/sMV Peak GR.mmHg E/A ratio1.32D MVAcm2 DECEL [id number] 1/2 [place] Aortic Valve Aortic ValveAortic Stenosis V11.25m/Emi Mean GR.5mmHg V21.61m/Emi Peak GR.10mmHg LVOT Diameter1.8 (1.8-2.4cm)Doppler AVA1.97cm2 Pulmonic Valve V20.97m/s Other Information Technically limited study due to body habitus. Conclusion NORMAL LV EJECTION FRACTION OF 70% NORMAL VALVES NO EFFUSION NORMAL RV FUNCTION
[2024-08-03 22:45] LABS: Cannabinoid Screen, Urine Pos (NEGATIVE)
[2024-08-03 22:47] LABS: Amphetamine Screen, Urine Neg (NEGATIVE); Barbiturate Scree,Urine Neg (NEGATIVE); Benzodiazephine Screen, Urine Neg (NEGATIVE); Cocaine Screen, Urine Neg (NEGATIVE); Opiate Scree,Urine Neg (NEGATIVE); Phencyclidine Screen, Urine Neg (NEGATIVE)
[2024-08-04 01:00] VITALS: BP 132/88; PULSE 64; RESP 18; TEMP 98.2; O2SAT 99
[2024-08-04 05:00] VITALS: BP 130/86; PULSE 70; RESP 18; TEMP 98.2; O2SAT 98
[2024-08-04 08:00] VITALS: PULSE 81
[2024-08-04 08:30] VITALS: BP 153/82; PULSE 61; RESP 19; TEMP 98.1; O2SAT 97
[2024-08-04] MEDS ORDERED: LOSARTAN POTASSIUM 25 MG TAB PO SCH (10:00)
[2024-08-04] MEDS: ASPirin 81 mg TAB PO SCH (10:48)
[2024-08-04] MEDS ORDERED: ASPI-628 PO (12:10)
[2024-08-04] MEDS ORDERED: LOSA-533 PO (12:10)
[2024-08-04] MEDS ORDERED: ATOR20TA PO (12:10)
--- NOTE | 2024-08-04 12:14 | DVHPN2 ---
Reviewed: Care Plan, H&P, Labs, Medications, Previous Orders, Radiology Changes from previous H/P or p: No Changes Objective Vitals Vital Signs Date Time Temp Pulse Resp B/P (MAP) Pulse Ox O2 Delivery O2 Flow Rate FiO2 08/04/24 10:48 153/82 08/04/24 08:30 98.1 61 19 97 98.1 08/04/24 08:09 Room Air* 0 21 Intake/Output Intake and Output 08/04/24 07:00 Intake Total 1488 ml Balance 1488 ml Intake Oral 1488 ml # Voids 5 # Bowel Movements 3 Medications Current Medications Medications Dose Ordered Sig/Marina Route Start Time Stop Time Status Last Admin Dose Admin Nitroglycerin 0.4 mg Q5MINP PRN SL 08/03/24 01:45 Morphine Sulfate 2 mg Q30M PRN IV 08/03/24 01:45 Acetaminophen 500 mg Q6HPRN PRN PO 08/03/24 01:45 08/03/24 23:18 500 MG Hydralazine HCl 10 mg Q6HP PRN IV 08/03/24 06:45 08/03/24 13:29 10 MG Famotidine 20 mg Q12HR PO 08/03/24 10:00 08/04/24 10:49 20 MG Losartan Potassium 25 mg DAILY PO 08/03/24 10:00 08/04/24 10:48 25 MG Aspirin 81 mg DAILY PO 08/04/24 10:00 08/04/24 10:48 81 MG Laboratory Results Laboratory Tests 08/02/24 16:03 08/02/24 17:03 Lipid panel Test 08/03/24 12:21 Cholesterol Level 171 mg/dL (< 200) HDL Cholesterol 57 mg/dL (40-59) Triglycerides Level 77 mg/dL (< 150) Urinalysis Test 08/02/24 00:00 Urine Color Light-yellow (Yellow) Urine Clarity Clear (Clear) Urine pH 6.5 (5.0-9.0) Urine Specific [place] 1.016 (1.001-1.035) Urine Protein Negative (Negative) Urine Ketones Negative (Negative) Urine Blood Negative /uL (Negative) Urine Nitrite Negative (Negative) Urine Bilirubin Negative (Negative) Urine Urobilinogen Normal mg/dL (Negative) Urine Leukocyte Esterase 1+ /uL (Negative) Urine RBC 1 /hpf (0 - 4) Urine WBC 3 /hpf (0 - 5) Urine Squamous Epithelial Cells Few /hpf (<5) Urine Bacteria Few /hpf (None Seen) H Urine Glucose Normal mg/dL (Normal) Labs and/or images reviewed: Labs reviewed by me, Image(s) reviewed by me Assessment/Plan Assessment/Plan Acute chest pain coronary artery disease ruled out Troponin negative x3 cardiology consult by Dr. Liz Luciano appreciated Hypertensive emergency losartan 25 mg p.o. daily Hypercholesterolemia Palpitations Shortness of breath Hypercholesterolemia with cholesterol of 171: Lipitor 20 mg p.o. daily Marijuana Abuse: Counseling Urine drug screen negative Echocardiogram 70 % ejection fraction Plan discussed with: Patient Date of Service: Aug 04, 2024 Billing Provider: YAHAIRA CAICEDO MD Common Visit Codes: [id number] INP/OBS CARE(HIGH) YAHAIRA CAICEDO MD Aug 04, 2024 12:14
--- NOTE | 2024-08-04 12:19 | DVHDS2 ---
Discharge Summary Date of Admission Aug 03, 2024 at 01:34 Date of Discharge: Aug 04, 2024 Admitting Diagnosis Chest pain Wounds: None Labs/Diagnostic Data: Laboratory Results Test 08/03/24 21:30 08/03/24 12:21 08/02/24 19:19 08/02/24 17:23 Urine Opiates Screen Neg (NEGATIVE) Urine Fentanyl Screen Neg (NEGATIVE) Urine Barbiturates Screen Neg (NEGATIVE) Urine Phencyclidine Screen Neg (NEGATIVE) Urine Amphetamines Screen Neg (NEGATIVE) Urine Benzodiazepines Screen Neg (NEGATIVE) Urine Cocaine Screen Neg (NEGATIVE) Urine Cannabinoids Screen Pos (NEGATIVE) Triglycerides Level 77 mg/dL (< 150) Cholesterol Level 171 mg/dL (< 200) LDL Cholesterol 106 mg/dL (< 100) HDL Cholesterol 57 mg/dL (40-59) Troponin I High Sensitivity 4 ng/L (</=34) POC Glucose 92 mg/dl (70-106) Test 08/02/24 17:03 08/02/24 16:03 08/02/24 00:00 White Blood Count 4.7 10^3/uL (4.4-10.8) Red Blood Count 4.13 10^6/uL (4.0-5.20) Hemoglobin 13.0 g/dL (12.2-16.2) Hematocrit 37.5 % (36.0-46.0) Mean Corpuscular Volume 90.9 fL (80.0-100.0) Mean Corpuscular Hemoglobin 31.4 pg (28.0-32.0) Mean Corpuscular Hemoglobin Concent 34.5 g/dL (32.0-36.0) Red Cell Distribution Width 12.9 % (11.8-14.3) Platelet Count 387 10^3/uL (140-450) Mean Platelet Volume 8.2 fL (6.9-10.8) Neutrophils (%) (Auto) 41.6 % (37.0-80.0) Lymphocytes (%) (Auto) 44.5 % (10.0-50.0) Monocytes (%) (Auto) 10.3 % (0.0-12.0) Eosinophils (%) (Auto) 2.7 % (0.0-7.0) Basophils (%) (Auto) 0.9 % (0.0-2.0) Neutrophils # (Auto) 2.0 10 ^3/uL (1.6-8.6) Lymphocytes # (Auto) 2.1 10 ^3/uL (0.4-5.4) Monocytes # (Auto) 0.5 10 ^3/uL (0-1.3) Eosinophils # (Auto) 0.1 10 ^3/uL (0-0.8) Basophils # (Auto) 0 10 ^3/uL (0-0.2) Nucleated Red Blood Cells 0.4 % Sodium Level 141 mmol/L (136-145) Potassium Level 3.6 mmol/L (3.5-5.1) Chloride Level 108 mmol/L (98-107) Carbon Dioxide Level 25 mmol/L (20-31) Anion Gap 8 (5-15) Blood Urea Nitrogen 11 mg/dL (9-23) Creatinine 0.79 mg/dL (0.550-1.02) Glomerular Filtration Rate Calc 86 mL/min (>90) BUN/Creatinine Ratio 13.9 (10.0-20.0) Serum Glucose 95 mg/dL (74-106) Calcium Level 10.1 mg/dL (8.7-10.4) Total Bilirubin 0.3 mg/dL (0.2-1.0) Aspartate Amino Transferase (AST) 18 U/L (13-40) Alanine Aminotransferase (ALT) 22 U/L (7-40) Alkaline Phosphatase 64 U/L (46-116) Total Protein 7.4 g/dL (5.7-8.2) Albumin 4.4 g/dL (3.2-4.8) Urine Color Light-yellow (Yellow) Urine Clarity Clear (Clear) Urine pH 6.5 (5.0-9.0) Urine Specific [place] 1.016 (1.001-1.035) Urine Protein Negative (Negative) Urine Ketones Negative (Negative) Urine Blood Negative /uL (Negative) Urine Nitrite Negative (Negative) Urine Bilirubin Negative (Negative) Urine Urobilinogen Normal mg/dL (Negative) Urine Leukocyte Esterase 1+ /uL (Negative) Urine RBC 1 /hpf (0 - 4) Urine WBC 3 /hpf (0 - 5) Urine Squamous Epithelial Cells Few /hpf (<5) Urine Bacteria Few /hpf (None Seen) Urine Glucose Normal mg/dL (Normal) Other Laboratory Tests 08/02/24 17:03 08/02/24 16:03 Brief Hx & Hospital Course: 58-year-old female with a history of hypertension hypercholesterolemia came in complaining of chest pain. Troponin negative x3 seen by Cardiology Dr. Luciano placed on losartan for accelerated hypertension and Lipitor for the cholesterol. Marijuana abuse patient was counseled urine drug screen was negative except for marijuana. Echocardiogram 70 percent ejection fraction cleared for discharge by Cardiology. Discharged home prescription for lisinopril aspirin and Lipitor transmitted to the pharmacy Consults/Reason for consult Cardiology Dr. Liz Luciano Operations or Procedures Echocardiogram Condition at Discharge: Fair Final Diagnosis/Problems List Acute chest pain coronary artery disease ruled out Troponin negative x3 cardiology consult by Dr. Liz Luciano appreciated Hypertensive emergency losartan 25 mg p.o. daily Hypercholesterolemia Palpitations Shortness of breath Hypercholesterolemia with cholesterol of 171: Lipitor 20 mg p.o. daily Marijuana Abuse: Counseling Urine drug screen negative Echocardiogram 70 % ejection fraction Discharge Disposition: Home Discharge Instruct/Medications Diet: Cardiac 2g Na,low cholest Activity: No Restrictions, As Tolerated Follow Up/Referral: Follow up with your primary Dr in one week Medications: Aspirin Lipitor Lisinopril Transmitted to the pharmacy 35 (Time taken for discharge summary 35 minutes) Discharge Statement: "Patient was advised to return to the ER or call 911 if any headaches, dizziness, shortness of breath, chest pain, abdominal pain, bleeding, fevers, or worsening of medical condition. Patient was counseled about treatment plan, medications, possible side effects, patientverbalized understanding. All questions were answered to the best of my ability. This discharge took greater then 30 minutes in planning, reviewing documentation, counseling the patient, and discussing with other team members." ASSESSMENT ASSESSMENT Hospital Course Improved Assessment Acute chest pain coronary artery disease ruled out Troponin negative x3 cardiology consult by Dr. Liz Luciano appreciated Hypertensive emergency losartan 25 mg p.o. daily Hypercholesterolemia Palpitations Shortness of breath Hypercholesterolemia with cholesterol of 171: Lipitor 20 mg p.o. daily Marijuana Abuse: Counseling Urine drug screen negative Echocardiogram 70 % ejection fraction Date of Service: Aug 04, 2024 Billing Provider: YAHAIRA CAICEDO MD Common Visit Codes: 89283-IGL/OBS DISCH DAY >30min YAHAIRA CAICEDO MD Aug 04, 2024 12:19
[2024-08-04 12:48] VITALS: BP 146/79; PULSE 76; RESP 18; TEMP 98.3
[2024-08-04 13:00] VITALS: BP 166/89; PULSE 68; RESP 19; TEMP 98.6; O2SAT 97
--- NOTE | 2024-08-04 13:59 | DVHPN2 ---
Consult Progress Note Subjective Patient reports: No new complaints Review of Systems: CVS:Normal (Denies chest pain, palpitation, shortness of breath) Objective vital signs Vital Sign Date Time Temp Pulse Resp B/P (MAP) Pulse Ox O2 Delivery O2 Flow Rate FiO2 08/04/24 13:00 98.6 68 19 166/89 (114) 97 98.6 08/04/24 08:09 Room Air* 0 21 Total Intake and Output 08/03/24 08/03/24 08/04/24 15:00 23:00 07:00 Intake Total 344 ml 344 ml 800 ml Balance 344 ml 344 ml 800 ml medications Current Medications Medications Dose Ordered Sig/Marina Route Start Time Stop Time Status Last Admin Dose Admin Nitroglycerin 0.4 mg Q5MINP PRN SL 08/03/24 01:45 Morphine Sulfate 2 mg Q30M PRN IV 08/03/24 01:45 Acetaminophen 500 mg Q6HPRN PRN PO 08/03/24 01:45 08/03/24 23:18 500 MG Hydralazine HCl 10 mg Q6HP PRN IV 08/03/24 06:45 08/03/24 13:29 10 MG Famotidine 20 mg Q12HR PO 08/03/24 10:00 08/04/24 10:49 20 MG Losartan Potassium 25 mg DAILY PO 08/03/24 10:00 08/04/24 10:48 25 MG Aspirin 81 mg DAILY PO 08/04/24 10:00 08/04/24 10:48 81 MG Examination: CVS:Normal (Telemetry consistent with sinus rhythm at 78 beats per minute. No overnight events noted.) laboratory and microbiology Laboratory Tests 08/02/24 17:03 08/02/24 16:03 Test 08/02/24 16:03 Range/Units Serum Glucose 95 74-106 mg/dL Problem List/Assessment/Plan Problem List/Assessment/Plan Assessment Chest pain Hypertensive urgency HX HLD Palpitations Shortness of breath Plan/Recommendation * Troponins negative x3. EKG negative for acute ischemic changes. ACS ruled out. Continue on aspirin. Follow up echo with normal EF. * Follow up lipid panel. * Continue on losartan 25 mg p.o. daily. Continue trending. Up titrate as tolerated. * Continue tele monitoring for arrhythmias. Outpatient event monitoring for palpitations. * CXR negative, breathing stable on room air Case Discussed with Dr Luciano. Follow up echo shows normal EF, no structural valvular abnormalities. Continue telemetry monitoring. BP slightly elevated recommend titrating losartan as tolerated. Recommend outpatient follow up with Cardiology for event monitoring and possible ischemic workup. No further cardiac workup indicated at this time. Stable from Cardiology standpoint for discharge. We will sign off. This medical document was created using an electronic medical record system with voice recognition software and computerized dictation system. Although this document has been carefully reviewed, there might still be some phonetic and typographical errors. Occasional wrong-word or ``sound-alike substitutions may have occurred due to the inherent limitations of voice recognition software. These areas are purely typographical due to imperfections of the software programs and do not reflect any compromise in the patient's medical care. Please read the chart carefully and recognize, using context, where these substitutions have occurred. Thank you for allowing me to participate in the management of this patient. The treatment plan was discussed with and agreed upon by patient/family including requesting consultants and ordering of imaging/procedures. Plan discussed with: Patient Date of Service: Aug 04, 2024 Billing Provider: POPPY GONZALEZ Common Visit Codes: [id number] INP/OBS CARE(HIGH) POPPY GONZALEZ Aug 04, 2024 13:59
--- NOTE | 2024-08-04 18:34 | DVHPN2 ---
Consult Progress Note Subjective Other Systems: Patient was seen and evaluated in follow up. Patient has no new complaints at this time. Patient denies any cardiac symptoms. Patient is cardiac stable for discharge. Telemetry reviewed. Objective vital signs Vital Sign Date Time Temp Pulse Resp B/P (MAP) Pulse Ox O2 Delivery O2 Flow Rate FiO2 08/04/24 13:00 98.6 68 19 166/89 (114) 97 98.6 08/04/24 08:09 Room Air* 0 21 Total Intake and Output 08/03/24 08/03/24 08/04/24 15:00 23:00 07:00 Intake Total 344 ml 344 ml 800 ml Balance 344 ml 344 ml 800 ml Examination: GENERAL:Normal, HEENT:Normal, NECK:Normal, LUNGS:Normal, CVS:Normal, ABDOMEN:Normal, MSK:Normal, SKIN:Normal, NEURO:Normal laboratory and microbiology Laboratory Tests 08/02/24 17:03 08/02/24 16:03 Test 08/02/24 16:03 Range/Units Serum Glucose 95 74-106 mg/dL Problem List/Assessment/Plan Problem List/Assessment/Plan Assessment Chest pain. Hypertensive urgency. History of HLD. Palpitations. Shortness of breath. Plan/Recommendation Continued all current supportive medical care. Patient has been seen by Darian Bundy NP on my behalf, him and I discussed the plan with the patient. Follow up echo shows normal EF, no structural valvular abnormalities. Continue telemetry monitoring. BP slightly elevated recommend titrating losartan as tolerated. Recommend outpatient follow up with Cardiology for event monitoring and possible ischemic workup. No further cardiac workup indicated at this time. Stable from Cardiology standpoint for discharge. Additional plan as per the hospital course. Plan discussed with: Patient Date of Service: Aug 04, 2024 Billing Provider: LISA DRAKE MD Cardiology Common Codes: [id number] HOSP CARE(High LISA DRAKE MD Aug 04, 2024 18:34
--- NOTE | 2024-08-07 11:11 | ECG ---
[facility] Test Date: 2024-08-02 Test Time: 15:57:51 Pat Name: CHARITY GUALLPA Department: ED Room: 0298T A Gender: F Esc[employer] Service Attendant: PA : [id number] Requested By: ISAAC NUÑEZ Order Number: [id number] Reading MD: Roland Brooke Measurements Intervals [place] Rate: 80 P: 78 VT: 140 QRS: 76 QRSD: 99 T: 27 QT: 427 QTc: 493 Interpretive Statements Sinus rhythm Borderline prolonged QT interval Electronically Signed On 08-11-2024 14:16:37 PST by Roland Brooke Please click the below link to view image of tracing.
== END 2024-08-04 12:30 | disposition home or self-care (01) | DRG 305 ==
LOC: ER 16:06 → TELE 08-03 01:34 → TELE-WESTW 08-03 02:40
PROVIDERS: ADMIT Student in an Organized Health Care Education/Training Program; ATTEND Emergency Medicine
DX: I16.1 Hypertensive emergency (principal); Z68.1 Body mass index [BMI] 19.9 or less, adult; R07.89 Other chest pain; E78.00 Pure hypercholesterolemia, unspecified; I10 Essential (primary) hypertension; J45.909 Unspecified asthma, uncomplicated; F12.10 Cannabis abuse, uncomplicated; Z79.899 Other long term (current) drug therapy; Z82.49 Family history of ischemic heart disease and other diseases of the circulatory system; Z82.0 Family history of epilepsy and other diseases of the nervous system
CPT/HCPCS: 36415; 71045; 80053; 80061; 80307; 81001; 82962; 84484; 85025; 93005; 93306; 99291; G0378; J2405